=== PATIENT | male | born 1975 | race Two or more races ===

== ENCOUNTER 2020-10-17 10:58 | Outpatient (REF) | payer OTHER, SELFPAY | END 2020-10-17 10:59 | disposition home or self-care (01) | LOC: HO.LAB 10:58 | PROVIDERS: Visit Provider Internal Medicine | DX: Z20.828 Contact with and (suspected) exposure to other viral communicable diseases (principal) | CPT/HCPCS: C9803; U0003 ==

== ENCOUNTER 2020-10-25 12:22 | Outpatient (REF) | payer OTHER, MEDICAID, SELFPAY | END 2020-10-25 12:23 | disposition home or self-care (01) | LOC: HO.LAB 12:22 | PROVIDERS: Visit Provider Internal Medicine | DX: Z20.828 Contact with and (suspected) exposure to other viral communicable diseases (principal) | CPT/HCPCS: U0003 ==

== ENCOUNTER 2020-12-26 10:21 | Outpatient (REF) | payer OTHER, SELFPAY | END 2020-12-26 10:22 | disposition home or self-care (01) | LOC: HO.LAB 10:21 | PROVIDERS: Visit Provider Internal Medicine | DX: Z20.822 Contact with and (suspected) exposure to COVID-19 (principal) | CPT/HCPCS: 36415; C9803; U0003; U0005 ==